=== PATIENT | female | born 1960 | race Native Hawaiian/Other Pacific Islander ===

== ENCOUNTER 2019-01-02 20:59 | Emergency (ER) | payer BC ==
[~2019-01-02] VITALS: Ht 167.6 cm; Wt 83.9 kg
[2019-01-02 22:38] VITALS: BP 148/91; TEMP 98.1
== END 2019-01-02 22:39 | disposition home or self-care (01) ==
LOC: ED 20:59
DX: S80.02XA Contusion of left knee, initial encounter (principal); M25.462 Effusion, left knee; Y00.XXXA Assault by blunt object, initial encounter
CPT/HCPCS: 99283; J1885